=== PATIENT | male | born 1965 | race Caucasian/White ===

== ENCOUNTER 2020-04-25 11:12 | Emergency (ER) | payer BC ==
[~2020-04-25] VITALS: Ht 162.6 cm; Wt 64.0 kg
[2020-04-25] MEDS ORDERED: ACETAMINOPHEN ES 500 MG TABLET PO ONE (11:45)
[2020-04-25] MEDS ORDERED: ACETAMINOPHEN ES 500 MG TABLET ONE (11:54)
--- NOTE | 2020-04-25 12:09 | NUR ---
Patient discharged to home in stable condition. Written and verbal after care instructions given. Patient verbalizes understanding of instructions. Stressed follow up or return to ER for worsening s/s.
== END 2020-04-25 12:14 | disposition home or self-care (01) ==
LOC: ER 11:12
DX: U07.1 COVID-19 (principal)
CPT/HCPCS: A4663; A9150